=== PATIENT | male | born 1985 | race Hispanic/Latino ===

== ENCOUNTER 2017-12-08 17:28 | Emergency (ER) | payer SELFPAY ==
[2017-12-08] MEDS ORDERED: DEXAMETHASONE SOD PHOSPHATE 10MG/ML 1ML VIAL ONE (17:51)
== END 2017-12-08 18:10 | disposition home or self-care (01) ==
LOC: EDH 17:28
DX: L50.0 Allergic urticaria (principal); Z72.0 Tobacco use
CPT/HCPCS: 96372; 99283; J1100

== ENCOUNTER 2023-07-31 07:43 | Emergency (ER) | payer OTHER ==
[~2023-07-31] VITALS: Ht 170.2 cm; Wt 86.2 kg
[2023-07-31] MEDS ORDERED: HYDROCODONE/ACETAMINOPHEN 5/325 MG TAB PO ONE (09:30)
[2023-07-31 10:54] VITALS: BP 134/87; PULSE 96; RESP 18; O2SAT 99
[2023-07-31] MEDS ORDERED: AMOX-426 PO (12:08)
[2023-07-31] MEDS ORDERED: METH4TAB3 PO (12:08)
[2023-07-31] MEDS ORDERED: AMOX/CLAV 500/125MG TAB PO ONE ×2 (12:14→12:30)
== END 2023-07-31 11:50 | disposition home or self-care (01) ==
LOC: EDH 07:43
DX: K04.7 Periapical abscess without sinus (principal); K05.10 Chronic gingivitis, plaque induced
CPT/HCPCS: 70486